=== PATIENT | male | born 1940 | race Caucasian/White ===

== ENCOUNTER 2021-09-17 14:54 | Emergency (ER) | payer MEDICARE, BC ==
[~2021-09-17 14:54] MED LIST: Iopamidol 300 61% 100 ML VIAL FS ONE
[2021-09-17 16:30] LABS: #Basophils 0.1 10x3/uL (0.0-0.2); #Eosinphils 0.3 10x3/uL (0.0-0.5); #Monocytes 0.5 10x3/uL (0.0-1.1); #Neutrophils 4.1 10x3/uL (1.5-8.4); %Basophils 0.9 % (0.0-2.0); %Eosinophils 4.7 % (0.0-6.0); %Lymphocytes 29.2 % (18.0-47.0); %Monocytes 6.4 % (0.0-10.0); %Neutrophils 58.4 % (40.0-75.0); Mean Corpuscular HGB CONC 35.7 g/dL (32.0-36.0); Mean Corpuscular Hemoglobin 33.8 pg (27.0-33.0); Mean Corpuscular Volume 94.7 fl (81.2-95.1); Mean Platelet Volume 8.9 fl (7.4-10.4); Platelet Count 169 10x3/uL (150-450); RBC Distribution Width 12.6 % (11.5-14.5); Red Blood Cell (RBC) Count 4.14 10x6/uL (4.32-5.72); White Blood Cell (WBC) Count 7.1 10x3/uL (3.5-10.5)
[2021-09-17 16:47] LABS: ALT (SGPT) 26 U/L (8-55); AST (SGOT) 20 U/L (5-34); Albumin 4.2 g/dL (3.4-4.8); Alkaline Phosphatase 89 U/L (40-110); Anion Gap 10 mmol/L (10-20); BUN (Urea Nitrogen) 14 mg/dL (8.4-25.7); Bilirubin, Total 0.6 mg/dL (0.2-1.2); Calc. Creatinine Clearance 0 mL/min (70-130); Calcium 9.5 mg/dL (7.8-10.44); Carbon Dioxide 28 mmol/L (23-31); Chloride 104 mmol/L (98-107); Estimated GFR 65; Globulin 2.5 g/dL (2.4-3.5); Glucose 115 mg/dL (83-110); Lipase 93 U/L (8-78); Potassium 4.1 mmol/L (3.5-5.1); Protein, Total 6.7 g/dL (5.8-8.1); Sodium 138 mmol/L (136-145)
[2021-09-17] MEDS ORDERED: Dexamethasone 10 MG/ML VIAL ONE (16:56)
[2021-09-17 17:58] LABS: Bilirubin Neg (Negative); Blood, Urine Negative (Negative); Clarity Clear (Clear); Glucose, Urine (Dipstick) Normal (Negative); Ketone, Urine Negative (Negative); Leukocyte Negative (Negative); Nitrite Negative (Negative); Protein, Urine (Dipstick) Negative (Neg-Trace); Urobilinogen Normal mg/dL (Less than 2)
== END 2021-09-17 19:14 | disposition home or self-care (01) ==
LOC: CSHERS 14:54
DX: S30.0XXA Contusion of lower back and pelvis, initial encounter (principal); R29.6 Repeated falls; W19.XXXA Unspecified fall, initial encounter
CPT/HCPCS: 74177; 80053; 81003; 83690; 84484; 85025; 96374; J1100; Q9967

== ENCOUNTER 2021-11-01 10:31 | Emergency (ER) | payer OTHER, MEDICARE, BC ==
[2021-11-01 11:38] LABS: #Basophils 0.1 10x3/uL (0.0-0.2); #Eosinphils 0.4 10x3/uL (0.0-0.5); #Monocytes 0.8 10x3/uL (0.0-1.1); #Neutrophils 9.8 10x3/uL (1.5-8.4); %Basophils 0.4 % (0.0-2.0); %Eosinophils 3.4 % (0.0-6.0); %Lymphocytes 12.2 % (18.0-47.0); %Neutrophils 77.3 % (40.0-75.0); Hemoglobin 13.3 g/dL (13.5-17.5); Mean Corpuscular HGB CONC 36.6 g/dL (32.0-36.0); Mean Corpuscular Hemoglobin 32.8 pg (27.0-33.0); Mean Corpuscular Volume 89.4 fl (81.2-95.1); Mean Platelet Volume 8.9 fl (7.4-10.4); Platelet Count 163 10x3/uL (150-450); RBC Distribution Width 12.8 % (11.5-14.5); Red Blood Cell (RBC) Count 4.06 10x6/uL (4.32-5.72); White Blood Cell (WBC) Count 12.7 10x3/uL (3.5-10.5)
[2021-11-01 11:47] LABS: PTT 25.1 sec (22.0-33.0); Prothrombin Time 11.2 sec (9.5-12.1)
[2021-11-01 11:50] LABS: ALT (SGPT) 40 U/L (8-55); AST (SGOT) 19 U/L (5-34); Albumin 3.9 g/dL (3.4-4.8); Alkaline Phosphatase 82 U/L (40-110); Anion Gap 13 mmol/L (10-20); BUN (Urea Nitrogen) 14 mg/dL (8.4-25.7); Bilirubin, Total 0.9 mg/dL (0.2-1.2); Calc. Creatinine Clearance 0 mL/min (70-130); Calcium 9.3 mg/dL (7.8-10.44); Carbon Dioxide 24 mmol/L (23-31); Chloride 103 mmol/L (98-107); Estimated GFR 76; Globulin 2.3 g/dL (2.4-3.5); Glucose 144 mg/dL (83-110); Potassium 3.9 mmol/L (3.5-5.1); Protein, Total 6.2 g/dL (5.8-8.1); Sodium 136 mmol/L (136-145)
[2021-11-01] MEDS ORDERED: Morphine 4 MG/ML VIAL ONE (12:32)
[2021-11-01 12:44] LABS: SARS-CoV-2 NAA Rapid Test Not Detected (NotDetected)
[2021-11-01] MEDS ORDERED: Ondansetron PF 4 MG/2 ML Vial ONE (12:51)
== END 2021-11-01 13:31 | disposition short-term general hospital (02) ==
LOC: CSHERS 10:31
DX: S72.002A Fracture of unspecified part of neck of left femur, initial encounter for closed fracture (principal); E11.9 Type 2 diabetes mellitus without complications; I25.2 Old myocardial infarction; Z20.822 Contact with and (suspected) exposure to COVID-19; W01.0XXA Fall on same level from slipping, tripping and stumbling without subsequent striking against object, initial encounter
CPT/HCPCS: 71045; 73502; 73564; 80053; 85025; 85610; 85730; 93005; 96374; 96375; 99285; U0002; 36415; J2270; J2405

== ENCOUNTER 2021-12-16 11:02 | Emergency (ER) | payer MEDICARE, BC ==
[2021-12-16 13:13] LABS: #Eosinphils 0.4 10x3/uL (0.0-0.5); #Monocytes 0.5 10x3/uL (0.0-1.1); #Neutrophils 7.1 10x3/uL (1.5-8.4); %Basophils 0.4 % (0.0-2.0); %Eosinophils 3.8 % (0.0-6.0); %Lymphocytes 18.2 % (18.0-47.0); %Monocytes 5.4 % (0.0-10.0); %Neutrophils 71.8 % (40.0-75.0); Mean Corpuscular HGB CONC 34.1 g/dL (32.0-36.0); Mean Corpuscular Hemoglobin 32.2 pg (27.0-33.0); Mean Corpuscular Volume 94.2 fl (81.2-95.1); Mean Platelet Volume 8.7 fl (7.4-10.4); Platelet Count 238 10x3/uL (150-450); RBC Distribution Width 13.6 % (11.5-14.5); Red Blood Cell (RBC) Count 3.11 10x6/uL (4.32-5.72); White Blood Cell (WBC) Count 9.9 10x3/uL (3.5-10.5)
[2021-12-16 13:34] LABS: ALT (SGPT) 11 U/L (8-55); AST (SGOT) 14 U/L (5-34); Albumin 3.8 g/dL (3.4-4.8); Alkaline Phosphatase 130 U/L (40-110); Anion Gap 13 mmol/L (10-20); BUN (Urea Nitrogen) 14 mg/dL (8.4-25.7); Bilirubin, Total 0.7 mg/dL (0.2-1.2); Calc. Creatinine Clearance 0 mL/min (70-130); Calcium 9.5 mg/dL (7.8-10.44); Carbon Dioxide 24 mmol/L (23-31); Chloride 106 mmol/L (98-107); Estimated GFR 88; Globulin 2.6 g/dL (2.4-3.5); Glucose 110 mg/dL (83-110); Potassium 3.8 mmol/L (3.5-5.1); Protein, Total 6.4 g/dL (5.8-8.1); Sodium 139 mmol/L (136-145)
[2021-12-16] MEDS ORDERED: Lorazepam 2 MG/ML VIAL ONE (14:17)
[2021-12-16 14:34] LABS: Bilirubin Neg (Negative); Blood, Urine Negative (Negative); Clarity Sl. Cloudy (Clear); Glucose, Urine (Dipstick) Normal (Negative); Ketone, Urine Negative (Negative); Leukocyte Negative (Negative); Nitrite Negative (Negative); Protein, Urine (Dipstick) Negative (Neg-Trace); Specific Gravity, Urine 1.025 (1.005-1.030)
== END 2021-12-16 15:04 ==
LOC: CSHERS 11:02
DX: S06.5XAA Traumatic subdural hemorrhage with loss of consciousness status unknown, initial encounter (principal); R41.0 Disorientation, unspecified; R27.0 Ataxia, unspecified; R53.1 Weakness; E11.9 Type 2 diabetes mellitus without complications; I25.2 Old myocardial infarction; E78.5 Hyperlipidemia, unspecified; W18.30XA Fall on same level, unspecified, initial encounter; Z79.84 Long term (current) use of oral hypoglycemic drugs; Z79.899 Other long term (current) drug therapy
CPT/HCPCS: 36415; 70450; 71110; 80053; 81003; 85025; 86850; 86900; 86901; J2060